=== PATIENT | male | born 1950 | race Caucasian/White ===

== ENCOUNTER 2020-08-29 10:15 | Emergency (ER) | payer BC ==
[2020-08-29] MEDS ORDERED: Fentanyl 100 MCG/2 ML VIAL ONE (10:45)
[2020-08-29] MEDS ORDERED: Boostrix 0.5 ML (Tdap) VIAL ONE (12:42)
[2020-08-29] MEDS ORDERED: HYDROcodone/Acetaminophen 10/325 mg Tablet ONE (13:19)
== END 2020-08-29 12:45 | disposition home or self-care (01) ==
LOC: CSHERS 10:15
DX: S09.90XA Unspecified injury of head, initial encounter (principal); S43.102A Unspecified dislocation of left acromioclavicular joint, initial encounter; M54.2 Cervicalgia; E03.9 Hypothyroidism, unspecified; I10 Essential (primary) hypertension; Z23 Encounter for immunization; V01.10XA Pedestrian on foot injured in collision with pedal cycle in traffic accident, initial encounter
CPT/HCPCS: 70450; 71045; 72125; 90471; 90715; J3010